=== PATIENT | female | born 1990 | race Caucasian/White ===

== ENCOUNTER 2020-02-05 20:00 | Emergency (ER) | payer SELFPAY ==
[2020-02-05 20:10] VITALS: BP 116/65; PULSE 86; TEMP 98.4; BMI 24.4
--- OUTSIDE RECORDS SUMMARY | 2020-02-05 20:23 | XMS ---
:1990 Author Organization [facility] Support Name Relationship Address Phone UE Unavailable Unavailable Unavailable NEL DAVID COUSIN [address] [place] [id number] Re-disclosure Warning The records that you are about to access may contain information from federally- assisted alcohol or drug abuse programs. If such information is present, then the following federally mandated warning applies: This information has been disclosed to you from records protected by federal confidentiality rules (42 CFR part 2). The federal rules prohibit you from making any further disclosure of this information unless further disclosure is expressly permitted by the written consent of the person to whom it pertains or as otherwise permitted by 42 CFR part 2. A general authorization for the release of medical or other information is NOT sufficient for this purpose. The Federal rules restrict any use of the information to criminally investigate or prosecute any alcohol or drug abuse patient.The records that you are about to access may contain highly sensitive health information, the redisclosure of which is protected by Article 27-F of the [facility] Public Health law. If you continue you may haveaccess to information: Regarding HIV / AIDS; Provided by facilities licensed or operated by the [facility] Office of Mental Health; or Provided by the [facility] Office for People With Developmental Disabilities. If such information is present, then the following [facility] mandated warning applies: This information has been disclosed to you from confidential records which are protected by state law. State law prohibits you from making any further disclosure of this information without the specific written consent of the person to whom it pertains, or as otherwise permitted by law. Any unauthorized further disclosure in violation of state law may result in a fine or fci sentence or both. A general authorization for the release of medical or other information is NOT sufficient authorization for further disclosure. Insurance Providers Payer name Policy type Policy ID Covered Covered democrat's Policy P dar / Coverage democrat ID relationship to [employer] Inf ormation type donaldson SELF PAY SP INSURANCE
[2020-02-05] MEDS ORDERED: ACETAMINOPHEN 1000 MG/100 ML VIAL (NON FORMULARY) IVPB ONE (21:31)
--- NOTE | 2020-02-05 21:56 | PDOC ---
Attending Attestation - Resident Resident Name: Elvis Sapp - ED Attending Attestation I have performed the following: I have examined & evaluated the patient, The case was reviewed & discussed with the resident, I agree w/resident's findings & plan, Exceptions are as noted - HPI HPI: 02/05/20 21:56 30F here with vaginal bleeding, with suprapubic px for several days, +home preg test, LMP 3wks ago - Physicial Exam PE: 02/06/20 00:15 Agree with documented exam - Medical Decision Making 02/06/20 00:20 , +vaginal bleeding, LMP approx 3wks ago eval for ectopic f/u labs, rh, tvus PUL, Rh+ investigative agent aware dc with 48h re-eval for hcg trend strict return precautions Discharge - Discharge Information Problems reviewed: Yes Clinical Impression/Diagnosis: Threatened Condition: Stable Disposition: HOME - Follow up/Referral Referrals: Ming Rivera MD [Staff Physician] - - Patient Discharge Instructions Patient Printed Discharge Instructions: DI for Threatened Additional Instructions: You were provided a copy of your Ultrasound report. Please provide this to your CHEF INSTRUCTOR. Your marker, B-hCG, at todays visit was: [phone] Your blood type is A positive Return to the Emergency Department in 48 hours for follow up testing of your levels. Follow up with CHEF INSTRUCTOR in the next 1-2 days. We are referring you to Dr. Rivera, call the number attached to schedule an appointment. Take tylenol as directed by the label for pain. Immediately return to the nearest Emergency Department if you experience new or worsening symptoms including, but not limited to: - WORSENING PAIN - HEAVY BLEEDING WHERE YOU SOAK 1 PAD AN HOUR FOR 2 CONSECUTIVE HOURS - CHEST PAIN, SHORTNESS OF BREATH, LIGHTHEADEDNESS, FAINTING - ANYTHING THAT CONCERNS YOU Se le proporcion rossy copia de chavez informe de ultrasonido. Proporcione esto a chavez obstetra / gineclogo. Chavez marcador de embarazo, B-hCG, en la visita de nam fue: 343 Tu tipo de felipe es positivo Regrese al Departamento de Emergencias en 48 horas para las pruebas de seguimiento de corazon niveles. Terrie un seguimiento con un obstetra / gineclogo en los prximos 1-2 johnson. Lo estamos refiriendo al Dr. Rivera, llame al nmero adjunto para programar rossy dwayne. [place] tylenol segn las indicaciones de la etiqueta para el dolor. Regrese inmediatamente al Departamento de Emergencias ms cercano si experimenta sntomas nuevos o que empeoran, incluidos, entre otros: - DOLOR QUE EMPLEA - SANGRADO RALF DONDE SE REMOJA 1 PAD POR HORA IMANI 2 HORAS CONSECUTIVAS - DOLOR EN EL PECHO, FALTA AL RESPIRAR, LUMINOSIDAD, DESMAYOS - CUALQUIER COSA QUE LE PREOCUPE Print Language: SETSWANA - Post Discharge Activity
[2020-02-05] MEDS ORDERED: ACETAMINOPHEN INJECTION 100 ML IVPB ONE (22:18)
[2020-02-05 22:23] LABS: EOS % 1.4 % (0-4.5); HEMATOCRIT 39.9 % (32.4-45.2); HEMOGLOBIN 13.1 GM/dL (10.7-15.3); LYMPH % 28.6 % (8-40); MCHC 32.9 g/dl (32.0-36.0); MEAN PLT VOLUME 11.2 fl (7.5-11.1); MONO % 6.7 % (3.8-10.2); NEUT % 62.3 % (42.8-82.8); PLATELET COUNT 198 K/MM3 (134-434); RBC 4.53 M/mm3 (3.60-5.2); RDW 14.1 % (11.6-15.6); WHITE BLOOD COUNT 9.7 K/mm3 (4.0-10.0)
[2020-02-05 22:46] LABS: EPI CELLS 25 /uL (0-25.1); HYALINE CASTS 1 /uL (0-3.1); PH,URINE >= 9.0 (5.0-8.0); URINE APPEARANCE TURBID; URINE BACTERIA 619 /uL (0-1359); URINE BILIRUBIN NEGATIVE (NEGATIVE); URINE COLOR YELLOW; URINE GLUCOSE (UA) NEGATIVE (NEGATIVE); URINE KETONE NEGATIVE (NEGATIVE); URINE LEUK ESTERASE NEGATIVE (NEGATIVE); URINE NITRITE NEGATIVE (NEGATIVE); URINE PROTEIN NEGATIVE (NEGATIVE); URINE RBC 31 /uL (0-23.9); URINE WBC 2 /uL (0-25.8)
[2020-02-05 22:58] LABS: BILIRUBIN,TOTAL 0.2 mg/dL (0.2-1); BLOOD UREA NITROGEN 11.7 mg/dL (7-18); CALCIUM 9.1 mg/dL (8.5-10.1); CREATININE 0.5 mg/dL (0.55-1.3); POTASSIUM 4.6 mmol/L (3.5-5.1); TOT PROT 8.4 g/dl (6.4-8.2)
--- NOTE | 2020-02-05 23:39 | PDOC ---
History of Present Illness - General Chief Complaint: Vaginal Bleeding Stated Complaint: VAGINAL BLEEDING Time Seen by Provider: 02/05/20 21:38 History Source: Patient Exam Limitations: Language Barrier ([employer] [id number]) - History of Present Illness Initial Comments: 02/05/20 23:38 30F A1 LMP 01/20 c/o vaginal bleeding and + home test x 2 days. On/off spotting for bleeding. endorses suprapubic pain. denies n/v/f/c/dysuria. denies BELLAMY/lightheadedness/cp/sob. Monogamous, no h/o STD. No PMH. 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 Past History - Medical History Allergies/Adverse Reactions: Allergies Allergy/AdvReac Type Severity Reaction Status Date / Time No Known Allergies Allergy Verified 02/10/20 17:40 Home Medications: Ambulatory Orders Ibuprofen 600 mg PO QID PRN #20 tablet 02/10/20 COPD: No - Reproductive History Is Patient Now?: Yes - Psycho-Social/Smoking History Smoking History: Current every day smoker Number of Cigarettes Smoked Daily: 2 Information on smoking cessation initiated: No - Substance Abuse Hx (Audit-C & DAST Scrn) How often the patient has a drink containing alcohol: Monthly or less How often the patient has six or more drinks on one occasion: Less than monthly Score: In Men: 4 or > Positive; In Women: 3 or > Positive: 2 Screen Result (Pos requires Nsg. Audit-10AR): Negative In the last yr the pt used illegal drug/Rx for NonMed reason: No Score: Yes response is considered Positive: 0 Screen Result (Positive result requires Nsg. DAST-10): Negative Review of Systems - Review of Systems Comments:: CONSTITUTIONAL: Denies F / C HEENT: Denies headache, lightheadedness RESP: Denies SOB, cough CARD: Denies chest pain GI: + suprapubic pain. Denies N / V / D : + vaginal bleeding. Denies dysuria NEURO: Denies numbness MSK: Denies back pain SKIN: Denies rashes *Physical Exam - Vital Signs Last Vital Signs Temp Pulse Resp BP Pulse Ox 98.4 F 86 19 116/65 99 02/05/20 20:07 02/05/20 20:07 02/05/20 20:07 02/05/20 20:07 02/05/20 20:07 - Physical Exam GEN: Well appearing, NAD, comfortable. AAOx3. HEENT: NC/AT, EOMI, PERRL. Normal voice. Supple neck w/ FROM. CV: S1/S2, RRR, no m/r/g LUNG: CTAB, no wheezes, crackles, rales, rhonchi. GI: suprapubic TTP, soft, nd, +BS, no guarding, no rebound. No masses. Neg CVAT b/l. PELVIC: Exam chaperoned by JOSUE Pettit. Small amount of blood on external exam. Cervical os not visualized. no active bleeding or discharge noted. No blood in vault. Neg CMT or adnexal tenderness on bimanual exam. MSK: No obvious deformities of all extremities. SKIN: Warm, dry, no rashes appreciated. PSYCH: Normal mood and affect. NEURO: Moving all extremities well. ambulates w/ steady/normal gait ED Treatment Course - LABORATORY CBC & Chemistry Diagram: 02/05/20 21:50 02/05/20 21:50 - ADDITIONAL ORDERS Additional order review: Laboratory Results 02/05/20 02/05/20 02/05/20 21:50 21:50 21:50 Sodium 139 Potassium 4.6 Chloride 106 Carbon Dioxide 29 Anion Gap 4 L BUN 11.7 Creatinine 0.5 L Est GFR (CKD-EPI)AfAm 151.59 Est GFR (CKD-EPI)NonAf 130.79 Random Glucose 89 Calcium 9.1 Total Bilirubin 0.2 AST 23 ALT 37 Alkaline Phosphatase 70 Total Protein 8.4 H Albumin 4.0 Beta HCG, Quant 343.7 Urine Color Yellow Urine Appearance Turbid Urine pH >= 9.0 H Ur Specific [place] 1.024 Urine Protein Negative Urine Glucose (UA) Negative Urine Ketones Negative Urine Blood 1+ H Urine Nitrite Negative Urine Bilirubin Negative Urine Urobilinogen 1.0 Ur Leukocyte Esterase Negative Urine WBC (Auto) 2 Urine RBC (Auto) 31 Urine Casts (Auto) 1 U Epithel Cells (Auto) 25 Urine Bacteria (Auto) 619 Blood Type A POSITIVE Antibody Screen Negative 02/05/20 21:50 RBC 4.53 MCV 88.0 MCHC 32.9 RDW 14.1 MPV 11.2 H Neutrophils % 62.3 Lymphocytes % 28.6 Monocytes % 6.7 Eosinophils % 1.4 Basophils % 1.0 - Medications Given in the ED: ED Medications Discontinued Medications Generic Name Dose Route Start Last Admin Trade Name Latoya PRN Reason Stop Dose Admin Acetaminophen 1,000 mg 02/05/20 21:31 02/05/20 22:25 Ofirmev Injection - IVPB 02/05/20 21:32 1,000 mg ONCE ONE Administration Medical Decision Making - Medical Decision Making 30F A1 LMP 01/20 w/ vaginal bleeding x 2 days and + home . No active bleeding on exam. Suprapubic tenderness. Eval for IUP and ectopic. Given LMP pt may just have become and it may be hard to detect IUP. - CBC, CMP, Coags, T&S, hCG - UA - TVUS - ELECTROPLATING LABORER 02/05/20 23:50 TVUS report reviewed labs reviewed T&S reviewed pt feeling better s/p tylenol dw Dr. Daniels - f/u in clinic, f/u hcg in 48 hours DC patient home w/ SHARE HOLDER f/u and ED f/u in 48 hours. Return precautions given. Questions and concerns addressed. Discharge - Discharge Information Problems reviewed: Yes Clinical Impression/Diagnosis: Threatened Condition: Stable Disposition: HOME - Follow up/Referral Referrals: Ming Rivera MD [Staff Physician] - - Patient Discharge Instructions Patient Printed Discharge Instructions: DI for Threatened Additional Instructions: You were provided a copy of your Ultrasound report. Please provide this to your ELECTROPLATING LABORER. Your marker, B-hCG, at todays visit was: 343 Your blood type is A positive Return to the Emergency Department in 48 hours for follow up testing of your levels. Follow up with ELECTROPLATING LABORER in the next 1-2 days. We are referring you to Dr. Rivera, call the number attached to schedule an appointment. Take tylenol as directed by the label for pain. Immediately return to the nearest Emergency Department if you experience new or worsening symptoms including, but not limited to: - WORSENING PAIN - HEAVY BLEEDING WHERE YOU SOAK 1 PAD AN HOUR FOR 2 CONSECUTIVE HOURS - CHEST PAIN, SHORTNESS OF BREATH, LIGHTHEADEDNESS, FAINTING - ANYTHING THAT CONCERNS YOU Se le proporcion rossy copia de chavez informe de ultrasonido. Proporcione esto a chavez obstetra / gineclogo. Chavez marcador de embarazo, B-hCG, en la visita de nam fue: 343 Tu tipo de felipe es positivo Regrese al Departamento de Emergencias en 48 horas para las pruebas de se guimiento de corazon niveles. Terrie un seguimiento con un obstetra / gineclogo en los prximos 1-2 johnson. Lo estamos refiriendo [address] Dr. Rivera, llame al nmero adjunto para programar rossy dwayne. [place] tylenol segn las indicaciones de la etiqueta para el dolor. Regrese inmediatamente al Departamento de Emergencias ms cercano si experimenta sntomas nuevos o que empeoran, incluidos, entre otros: - DOLOR QUE EMPLEA - SANGRADO RALF DONDE SE REMOJA 1 PAD POR HORA IMANI 2 HORAS CONSECUTIVAS - DOLOR EN EL PECHO, FALTA AL RESPIRAR, LUMINOSIDAD, DESMAYOS - CUALQUIER COSA QUE LE PREOCUPE Print Language: FIJIAN - Post Discharge Activity
== END 2020-02-06 00:19 | disposition home or self-care (01) ==
LOC: JER 20:00
PROC: 3E0333Z Introduction of Anti-inflammatory into Peripheral Vein, Percutaneous Approach (ICD-10-PCS; principal; 2020-02-05)
DX: O20.0 Threatened abortion (principal)
CPT/HCPCS: 36415; 76830-TC; 80053; 81003; 84702; 85025; 86850; 86900; 86901; 99284-25; J0131

== ENCOUNTER 2020-02-10 17:37 | Emergency (ER) | payer OTHER ==
--- NOTE | 2020-02-10 17:42 | PDOC ---
Rapid Medical Evaluation Time Seen by Provider: 02/10/20 17:40 Medical Evaluation: Allergies Allergy/AdvReac Type Severity Reaction Status Date / Time No Known Allergies Allergy Verified 02/05/20 20:10 02/10/20 17:40 30 year old female 3 weeks with vaginal bleeding with abdominal pain. Here on the 8th now with worsening symptoms. PE: TTP in lower abdomen Plan: Labs TVUS Pt to precede to ED for further treatment
[2020-02-10 17:47] VITALS: TEMP 98.8; BMI 30.1
--- OUTSIDE RECORDS SUMMARY | 2020-02-10 17:59 | XMS ---
:1990 Author Organization [facility] Support Name Relationship Address Phone UE, UNEMPLOYED Unavailable Unavailable Unavailable UE Unavailable Unavailable Unavailable NEL DAVID COUSIN [address] [place] [address] NEL DAVID Other [address] [place] [place] [address] Re-disclosure Warning The records that you are [...] is protected by Article 27-F of the [facility] Public Health law. If you continue you may haveaccess to information: Regarding HIV / AIDS; Provided by facilities licensed or operated by the [facility] Office of Mental Health; or Provided by the [facility] Office for People With Developmental Disabilities. If such information is present, then the following [facility] mandated warning applies: This information has been [...] law may result in a fine or fpc sentence or both. A general authorization for the release of medical or other information is NOT sufficient authorization for further disclosure. Insurance Providers Payer name Policy type Policy ID Covered Covered republican's Policy P dar / Coverage republican ID relationship to [employer] Inf ormation type donaldson SELF PAY SP INSURANCE
--- NOTE | 2020-02-10 18:26 | PDOC ---
History of Present Illness - General Chief Complaint: Vaginal Bleeding Stated Complaint: Time Seen by Provider: 02/10/20 17:40 History Source: Patient - History of Present Illness Timing/Duration: reports: constant Quality: reports: mild Past History - Medical History Allergies/Adverse Reactions: Allergies Allergy/AdvReac Type Severity Reaction Status Date / Time No Known Allergies Allergy Verified 02/10/20 17:40 Home Medications: Ambulatory Orders Ibuprofen 600 mg PO QID PRN #20 tablet 02/10/20 COPD: No - Reproductive History Is Patient Now?: Yes - Psycho-Social/Smoking History Smoking History: Current every day smoker Have you smoked in the past 12 months: Yes Number of Cigarettes Smoked Daily: 3 Information on smoking cessation initiated: Yes - Substance Abuse Hx (Audit-C & DAST Scrn) How often the patient has a drink containing alcohol: Monthly or less Number of drinks the patient has on a typical day: 1 or 2 How often the patient has six or more drinks on one occasion: Never Score: In Men: 4 or > Positive; In Women: 3 or > Positive: 1 Screen Result (Pos requires Nsg. Audit-10AR): Negative In the last yr the pt used illegal drug/Rx for NonMed reason: No Score: Yes response is considered Positive: 0 Screen Result (Positive result requires Nsg. DAST-10): Negative Review of Systems - Review of Systems Constitutional: No: Chills, Fever ABD/GI: Yes: Abdominal cramping. No: Nausea, Vomiting : No: Dysuria, Flank Pain *Physical Exam - Vital Signs Last Vital Signs Temp Pulse Resp BP Pulse Ox 98.8 F 60 18 116/57 L 100 02/10/20 17:41 02/10/20 17:41 02/10/20 17:41 02/10/20 17:41 02/10/20 17:41 - Physical Exam General Appearance: Yes: Appropriately Dressed, Mild Distress HEENT: positive: Normal Voice Neck: positive: Supple Respiratory/Chest: negative: Respiratory Distress Gastrointestinal/Abdominal: positive: Normal Bowel Sounds, Tender (diffuse ttp to lower abd), Soft. negative: Distended, Guarding, Rebound Musculoskeletal: negative: CVA Tenderness Integumentary: positive: Dry, Warm Neurologic: positive: Fully Oriented, Alert, Normal Mood/Affect ED Treatment Course - LABORATORY CBC & Chemistry Diagram: 02/10/20 20:50 02/10/20 20:50 Medical Decision Making - Medical Decision Making 02/10/20 18:25 30 yo F, (s/p 1 spon AB), ~3 weeks by dates, here for reassessment for vaginal bleeding. Patient was initially seen in ED 6 days ago for vag bleed and abd cramps. Beta in the 300s w/ no e/o IUP, w/ L ovarian cyst and "moderate amount of complex free fluid" within the left adnexa possibly representing blood on US, per radiology. States vaginal bleeding persist, no clots. No worsening abdominal pain. No dysuria, nausea vomiting fever or chills. Has not yet followed up with OB. UA on 02/04 w/ perla in the 600s and 2 wbc, no ucx sent. Of note, pt RH + see exam Spon AB vs ectopic Beta 1 week ago in the 300s, no IUP w complex fluid collection within L adnexa on previous US Stable here -dose of tylenol -beta -US 02/10/20 18:45 02/10/20 19:11 Pt signed out to PANCHO Hendrix at this time Discharge - Discharge Information Problems reviewed: Yes Clinical Impression/Diagnosis: Ectopic of left ovary Condition: Stable Disposition: HOME - Additional Discharge Information Prescriptions: Ibuprofen 600 mg PO QID PRN #20 tablet PRN Reason: Pain - Follow up/Referral - Patient Discharge Instructions Patient Printed Discharge Instructions: DI for Ectopic Additional Instructions: Return to the ER if you are soaking 2 pads per hour, severe abdominal pain, or worsening symptoms. Return to the ER if you are soaking 2 pads per hour, severe abdominal pain, or worsening symptoms. please call tomorrow [address] [place] [address] clinic for follow-up - Post Discharge Activity Work/Back to School Note: Back to Work
[2020-02-10] MEDS ORDERED: ACETAMINOPHEN 500 MG TABLET (FP) PO ONE (18:28)
[2020-02-10] MEDS ORDERED: ACETAMINOPHEN 500 MG TABLET (FP) ONE (19:51)
--- NOTE | 2020-02-10 21:03 | PDOC ---
*Physical Exam - Vital Signs Last Vital Signs Temp Pulse Resp BP Pulse Ox 98.8 F 60 18 116/57 L 100 02/10/20 17:41 02/10/20 17:41 02/10/20 17:41 02/10/20 17:41 02/10/20 17:41 - Physical Exam General Appearance: Yes: Appropriately Dressed Respiratory/Chest: positive: Lungs Clear, Normal Breath Sounds ED Treatment Course - LABORATORY CBC & Chemistry Diagram: 02/10/20 20:50 02/10/20 20:50 - Medications Given in the ED: ED Medications Discontinued Medications Generic Name Dose Route Start Last Admin Trade Name Freq PRN Reason Stop Dose Admin Acetaminophen 1,000 mg 02/10/20 18:28 02/10/20 19:55 Tylenol - PO 02/10/20 18:29 1,000 mg ONCE ONE Administration Medical Decision Making - Medical Decision Making 02/10/20 22:03 Dr. Whaley:Recommends methotrexate and follow-up in the Clinic in 5 days.. Patient given instructions to follow-up in the [address] [place] [address]. Patient verbalized understanding strict return precautions were reviewed with patient Discharge - Discharge Information Problems reviewed: Yes Clinical Impression/Diagnosis: Ectopic of left ovary Condition: Stable Disposition: HOME - Additional Discharge Information Prescriptions: Ibuprofen 600 mg PO QID PRN #20 tablet PRN Reason: Pain - Follow up/Referral - Patient Discharge Instructions Patient Printed Discharge Instructions: DI for Ectopic Additional Instructions: Return to the ER if you are soaking 2 pads per hour, severe abdominal pain, or worsening symptoms. Return to the ER if you are soaking 2 pads per hour, severe abdominal pain, or worsening symptoms. please call tomorrow [address] [place] [address] clinic for follow-up - Post Discharge Activity Work/Back to School Note: Back to Work
[2020-02-10 21:12] LABS: HEMATOCRIT 37.4 % (32.4-45.2); HEMOGLOBIN 12.2 GM/dL (10.7-15.3); MCH 28.9 pg (25.7-33.7); MCHC 32.7 g/dl (32.0-36.0); MEAN CELL VOLUME 88.2 fl (80-96); MEAN PLT VOLUME 11.7 fl (7.5-11.1); PLATELET COUNT 192 K/MM3 (134-434); RBC 4.23 M/mm3 (3.60-5.2); RDW 13.8 % (11.6-15.6); WHITE BLOOD COUNT 8.1 K/mm3 (4.0-10.0)
[2020-02-10 21:21] LABS: EPI CELLS 29 /uL (0-25.1); HYALINE CASTS 1 /uL (0-3.1); URINE APPEARANCE CLEAR; URINE BACTERIA 912 /uL (0-1359); URINE BILIRUBIN NEGATIVE (NEGATIVE); URINE COLOR YELLOW; URINE GLUCOSE (UA) NEGATIVE (NEGATIVE); URINE KETONE NEGATIVE (NEGATIVE); URINE LEUK ESTERASE NEGATIVE (NEGATIVE); URINE NITRITE NEGATIVE (NEGATIVE); URINE PROTEIN NEGATIVE (NEGATIVE); URINE RBC 36 /uL (0-23.9); URINE WBC 10 /uL (0-25.8)
[2020-02-10] MEDS ORDERED: METHOTREXATE SODIUM/PF 25 MG/ML VIAL IM ONE (22:07)
[2020-02-10] MEDS ORDERED: traMADol HCL 50 MG TABLET PO ONE (22:09)
[2020-02-10] MEDS ORDERED: traMADol HCL 50 MG TABLET ONE (22:19)
[2020-02-10 22:28] VITALS: BP 115/71; PULSE 71
[2020-02-10 22:40] LABS: YEAST NONE SEEN (NEGATIVE)
== END 2020-02-10 23:20 | disposition home or self-care (01) ==
LOC: JER 17:37
DX: O00.102 Left tubal pregnancy without intrauterine pregnancy (principal)
CPT/HCPCS: 36415; 76817-TC; 81003; 84702; 85027; 87086; 99284-25; J9260